=== PATIENT | female | born 1960 | race African-American/Black ===

== ENCOUNTER 2023-05-13 07:24 | Observation (INO) | payer OTHER ==
[2023-05-13 09:34] LABS: #Monocytes 0.5 thou/uL (0.11-0.59); #Neutrophils 2.3 thou/uL (1.40-6.50); %Basophils 0.7 % (0.0-1.0); %Eosinophils 0.9 % (0.0-10.0); %Lymphocytes 35.8 % (21.0-51.0); %Monocytes 10.5 % (0.0-10.0); %Neutrophils 51.9 % (42.0-75.0); Hemoglobin 12.1 g/dL (12.0-16.0); Mean Corpuscular HGB CONC 32.4 g/dL (32.0-36.0); Mean Corpuscular Hemoglobin 31.8 pg (27.0-31.0); Mean Corpuscular Volume 98.2 fl (78.0-98.0); Platelet Count 193 10x3/uL (130-400); RBC Distribution Width 12.7 % (11.5-14.5); Red Blood Cell (RBC) Count 3.81 mill/uL (4.20-5.40); White Blood Cell (WBC) Count 4.5 10x3/uL (4.8-10.8)
[2023-05-13] MEDS ORDERED: Sodium Chloride 0.9% 100 ML ONE (09:49)
[2023-05-13] MEDS ORDERED: CEFAZOLIN 2 GM VIAL ONE (09:50)
[2023-05-13] MEDS ORDERED: fentaNYL 50 mcg/mL 1 mL Vial ONE (09:51)
[2023-05-13 09:55] LABS: Anion Gap 12 mmol/L (10-20); BUN (Urea Nitrogen) 11 mg/dL (9.8-20.1); Calc. Creatinine Clearance 80 mL/min (70-130); Calcium 9.2 mg/dL (7.8-10.44); Carbon Dioxide 22 mmol/L (23-31); Chloride 109 mmol/L (98-107); Estimated GFR 92; Glucose 76 mg/dL (80-115); Potassium 4.1 mmol/L (3.5-5.1); Sodium 139 mmol/L (136-145)
[2023-05-13] MEDS ORDERED: Ondansetron PF 4 MG/2 ML Vial ONE (10:40)
[2023-05-13] MEDS ORDERED: Rocuronium Bromide 10 MG/ML (10ML VIAL) ONE (10:40)
[2023-05-13] MEDS ORDERED: PROPOFOL 200 MG/20 ML VIAL ONE (10:40)
[2023-05-13] MEDS ORDERED: Lidocaine 1% PF 5 ML VIAL ONE (10:40)
[2023-05-13] MEDS ORDERED: Dexamethasone 20 MG/5 ML VIAL ONE (10:40)
[2023-05-13] MEDS ORDERED: Labetalol HCl 100 MG/20 ML VIAL ONE (10:40)
[2023-05-13] MEDS ORDERED: SUGAMMADEX SODIUM 200 MG/2 ML VIAL ONE ×2 (11:42→11:56)
[2023-05-13] MEDS ORDERED: Promethazine 25 MG TAB PO PRN (11:50)
[2023-05-13] MEDS ORDERED: traMADol HCl 50 MG TAB PO PRN (11:50)
[2023-05-13] MEDS ORDERED: Acetaminophen 325 MG TAB PO PRN (11:50)
[2023-05-13] MEDS ORDERED: diphenhydrAMINE 50 MG/ML VIAL IVP PRN (11:50)
[2023-05-13] MEDS ORDERED: Acetaminophen/Codeine 30-300mg Tablet PO PRN (11:50)
[2023-05-13] MEDS ORDERED: Cyclobenzaprine 10 MG TAB PO PRN (11:50)
[2023-05-13] MEDS ORDERED: Ondansetron PF 4 MG/2 ML Vial IVP PRN (11:50)
[2023-05-13] MEDS ORDERED: Promethazine HCl 25 MG/ML VIAL IM PRN (12:06)
[2023-05-13] MEDS ORDERED: Ondansetron HCl/PF 4 MG/2 ML Vial IVP PRN (12:06)
[2023-05-13] MEDS ORDERED: Fentanyl 250 MCG/5 ML VIAL ONE (12:11)
[2023-05-13 15:04] VITALS: BMI 24.8
[2023-05-13] MEDS: Morphine 2 MG/ML VIAL SLOW IVP PRN ×2 (16:34→21:07)
[2023-05-13] MEDS: Sodium Chloride 0.9% 1,000 ML IV SCH ×2 (17:16→17:53)
[2023-05-13] MEDS: CEFAZOLIN 2 GM in Sodium Chloride 0.9% 100 ML IVPB SCH (17:52)
[2023-05-13] MEDS ORDERED: Montelukast Sodium 10 mg Tablet PO SCH (21:00)
[2023-05-13 23:33] VITALS: TEMP 97.9
[2023-05-14] MEDS: Acetaminophen/Codeine 30-300mg Tablet PO PRN ×2 (01:06→08:12)
[2023-05-14] MEDS: Sodium Chloride 0.9% 1,000 ML IV SCH (01:07)
[2023-05-14] MEDS: CEFAZOLIN 2 GM in Sodium Chloride 0.9% 100 ML IVPB SCH ×2 (01:07→10:12)
[2023-05-14 08:05] VITALS: BP 126/76
[2023-05-14] MEDS ORDERED: Famotidine 20 MG TAB PO SCH (09:00)
== END 2023-05-14 10:34 | disposition home or self-care (01) ==
LOC: SDC 07:24 → T4-A 14:46
PROVIDERS: ADMIT Neurological Surgery; ATTEND Neurological Surgery
PROC: 0RG20A0 Fusion of 2 or more Cervical Vertebral Joints with Interbody Fusion Device, Anterior Approach, Anterior Column, Open Approach (ICD-10-PCS; principal; 2023-05-13)
DX: M48.02 Spinal stenosis, cervical region (principal); E78.5 Hyperlipidemia, unspecified; K21.9 Gastro-esophageal reflux disease without esophagitis; Z88.2 Allergy status to sulfonamides; Z88.6 Allergy status to analgesic agent
CPT/HCPCS: 36415; 80048; 85025; 93005; 93010; C1713; J1100; J2272; J2405; J2704; J3010; J3490; J7050